=== PATIENT | female | born 1995 | race Caucasian/White ===

== ENCOUNTER 2018-09-21 09:21 | Emergency (ER) | payer OTHER ==
[2018-09-21 09:28] VITALS: BMI 35.8
--- NOTE | 2018-09-21 09:36 | PDOC ---
History of Present Illness - General Chief Complaint: Nausea/Vomiting Stated Complaint: DIZZYNESS, VOMITING, CONJESTED Time Seen by Provider: 09/21/18 09:30 History Source: Patient - History of Present Illness Timing/Duration: other (this am) Past History - Past Medical History Allergies/Adverse Reactions: Allergies Allergy/AdvReac Type Severity Reaction Status Date / Time No Known Allergies Allergy Verified 09/21/16 11:15 Home Medications: Ambulatory Orders Meclizine HCl [Antivert -] 25 mg PO TID #21 tablet 09/21/18 Ondansetron HCl [Zofran] 4 mg PO Q8H #12 tablet 09/21/18 COPD: No Disorders: Yes (ovarian cyst) - Reproductive History Cervical CA: No Dysfunctional Uterine Bleeding: No Ectopic : No Endometrial CA: No Polycystic Ovaries: No Therapeutic (s) & number: No Tubal Ligation: No - Immunization History Immunization Up to Date: Yes - Suicide/Smoking/Psychosocial Hx Smoking History: Never smoked Have you smoked in the past 12 months: No Information on smoking cessation initiated: No Hx Alcohol Use: No Drug/Substance Use Hx: No Substance Use Type: None Review of Systems - Review of Systems Constitutional: Yes: Weakness. No: Chills, Fever Respiratory: Yes: Cough. No: Shortness of Breath Cardiac (ROS): Yes: Chest Pain ABD/GI: Yes: Nausea, Vomiting. No: Diarrhea, Abdominal cramping : No: Dysuria Neurological: Yes: Headache, Dizziness. No: Numbness, Tingling, Weakness *Physical Exam - Vital Signs Last Vital Signs Temp Pulse Resp BP Pulse Ox 98.5 F 85 18 133/69 99 09/21/18 09:26 09/21/18 09:26 09/21/18 09:26 09/21/18 09:26 09/21/18 09:26 - Physical Exam General Appearance: Yes: Appropriately Dressed, Moderate Distress HEENT: positive: Normal ENT Inspection, Normal Voice, TMs Normal, Pharynx Normal. negative: Scleral Icterus (R), Scleral Icterus (L) Neck: positive: Supple Respiratory/Chest: positive: Lungs Clear, Normal Breath Sounds. negative: Respiratory Distress Cardiovascular: positive: Regular Rate, S1, S2 Gastrointestinal/Abdominal: positive: Soft. negative: Tender Musculoskeletal: negative: CVA Tenderness Integumentary: positive: Dry, Warm Neurologic: positive: Fully Oriented, Alert, Normal Mood/Affect, Motor Strength 5/5 Heart Score/ECG Review - ECG Intrepretation Comment:: 09/21/18 10:21 Twelve-lead EKG was performed and reviewed by me. There is normal sinus rhythm with a normal rate. The axis is normal. The intervals are normal. There are no ST or T wave abnormalities. Impression: Normal twelve-lead EKG ED Treatment Course - LABORATORY CBC & Chemistry Diagram: 09/21/18 09:37 09/21/18 09:37 Medical Decision Making - Medical Decision Making 09/21/18 09:35 23 yo F, no pmhx, in [facility] until this a.m. when patient awoke with vertigo, worse when she looks up, associated with nausea, vomiting, vague headache and generalized weakness. At some point had some chest pain which has since improved. Had URI recently that has mostly resolved but still has mild cough per pt. No SOB, hemoptysis, focal weakness, body aches, neck pain, photophobia, rash, diarrhea, f/c. Currently on menses and c/o her usual lower abd cramping. No recent travel or sick contacts See exam ?vestibular neuritis S/p recent URI Melissa uncomfortable but stable w/ unremarkable exam -IVF -meclizine -zofran -labs r/o other source, i/e flu, , etc -reassess 09/21/18 10:19 09/21/18 11:04 EKG and labs unremarkable. UA w/ 1+ LE w/ 10 wbc and 80 rico. Upreg neg. As pt reports no dysuria, will hold off on abx and send ucx. Patient reports feeling significantly better with fluids and meds and able to tolerate po in ED. Will discharge with supportive treatment. Reasons to return discussed with patient 09/21/18 11:08 *DC/Admit/Observation/Transfer Diagnosis at time of Disposition: Vertigo - Discharge Dispostion Disposition: HOME Condition at time of disposition: Improved - Prescriptions Prescriptions: Meclizine HCl [Antivert -] 25 mg PO TID #21 tablet Ondansetron HCl [Zofran] 4 mg PO Q8H #12 tablet - Referrals Referrals: Tova Longoria MD [Primary Care Provider] - - Patient Instructions Printed Discharge Instructions: DI for Labyrinthitis Additional Instructions: Your labs and EKG were normal here The cause of your symptoms is not exactly clear at this time, but might be viral related. Sometimes patients can get a sensation of the room spinning with nausea, vomiting, hearing loss and imbalance after a cold or other viral illness This condition is usually not dangerous There is usually no test to confirm this diagnosis. It is usually a clinical diagnosis. This condition is usually self-limited and resolves on its own. For in the meantime treatment includes rest, plenty of fluids medicine like meclizine to treat the dizziness, and anti-nausea medication until symptoms resolve. If your symptoms persist or last more than a few weeks him a you need to follow- up with your PMD for further evaluation or return to the ER - Post Discharge Activity Forms/Work/School Notes: Back to Work
[2018-09-21] MEDS ORDERED: SODIUM CHLORIDE 1,000 ML IV STA (09:41)
[2018-09-21] MEDS ORDERED: MECLIZINE HCL 25 MG TABLET (FP) PO ONE (09:41)
[2018-09-21] MEDS ORDERED: ONDANSETRON 4 MG/2 ML VIAL IVPUSH ONE (09:41)
[2018-09-21] MEDS ORDERED: ONDANSETRON 4 MG/2 ML VIAL ONE (09:54)
[2018-09-21] MEDS ORDERED: MECLIZINE HCL 25 MG TABLET (FP) ONE (09:54)
[2018-09-21 09:55] LABS: BASO % 0.6 % (0-2.0); EOS % 2.5 % (0-4.5); HEMATOCRIT 38.2 % (32.4-45.2); HEMOGLOBIN 12.9 GM/dL (10.7-15.3); LYMPH % 32.9 % (8-40); MCHC 33.7 g/dl (32.0-36.0); MEAN CELL VOLUME 86.2 fl (80-96); MEAN PLT VOLUME 7.4 fl (7.5-11.1); MONO % 7.3 % (3.8-10.2); NEUT % 56.7 % (42.8-82.8); PLATELET COUNT 343 K/MM3 (134-434); RBC 4.43 M/mm3 (3.60-5.2); RDW 12.9 % (11.6-15.6); WHITE BLOOD COUNT 6.7 K/mm3 (4.0-10.0)
[2018-09-21 09:58] LABS: HCG,QUALITATIVE URINE Negative
[2018-09-21 10:06] LABS: EPI CELLS 15.2 /HPF (0-5/HPF); URINE APPEARANCE CLOUDY; URINE BACTERIA 80.3 /hpf (NEGATIVE); URINE BILIRUBIN 1+ (NEGATIVE); URINE CASTS 14 /hpf (0-8); URINE COLOR RED; URINE GLUCOSE (UA) NEGATIVE (NEGATIVE); URINE KETONE NEGATIVE (NEGATIVE); URINE LEUK ESTERASE 1+ (NEGATIVE); URINE NITRITE NEGATIVE (NEGATIVE); URINE PROTEIN 2+ (NEGATIVE); URINE UROBILINOGEN 0.2 mg/dL (0.2-1.0); URINE WBC 10 /hpf (0-5)
[2018-09-21 10:11] LABS: COCAINE, UR NEGATIVE ng/ml (CUTOFF=300); METHADONE, UR NEGATIVE ng/ml (CUTOFF=300); OPIATES, URI NEGATIVE ng/ml (CUTOFF=300); PHENCYCLIDINE,URINE NEGATIVE ng/ml (CUTOFF=25); URINE AMPHETAMINES NEGATIVE ng/ml (CUTOFF=500); URINE BARBITURATES NEGATIVE ng/ml (CUTOFF=200); URINE BENZODIAZEPINES NEGATIVE ng/ml (CUTOFF=200)
[2018-09-21 10:25] LABS: ALBUMIN 3.8 g/dl (3.4-5.0); ALK PHOS 69 U/L (45-117); ANION GAP 8 MMOL/L (8-16); BILIRUBIN,TOTAL 0.4 mg/dL (0.2-1); BLOOD UREA NITROGEN 12 mg/dL (7-18); CALCIUM 9.1 mg/dL (8.5-10.1); CHLORIDE 107 mmol/L (98-107); CO2 23 mmol/L (21-32); CREATININE 0.8 mg/dL (0.55-1.3); GLUCOSE,RANDOM 103 mg/dL (74-106); POTASSIUM 4.2 mmol/L (3.5-5.1); SGOT/AST 29 U/L (15-37); SGPT/ALT 38 U/L (13-61); SODIUM 138 mmol/L (136-145); TOT PROT 7.6 g/dl (6.4-8.2)
[2018-09-21 10:34] LABS: URINE RBC 100.8 /hpf (0-4)
[2018-09-21 10:35] LABS: YEAST NONE SEEN (NEGATIVE)
[2018-09-21 12:02] VITALS: BP 118/78; PULSE 78; TEMP 98.6
--- NOTE | 2018-09-21 16:35 | EKG ---
Test Reason : Blood Pressure : / mmHG Vent. Rate : 074 BPM Atrial Rate : 074 BPM P-R Int : 142 ms QRS Dur : 084 ms QT Int : 392 ms P-R-T Axes : 059 033 019 degrees QTc Int : 435 ms NORMAL SINUS RHYTHM WITH SINUS ARRHYTHMIA NORMAL ECG NO PREVIOUS ECGS AVAILABLE Confirmed by ELLIE CASTAÑEDA MD ([id number]) on 09/21/2018 4:35:19 PM Referred By: Confirmed By:ELLIE CASTAÑEDA MD
== END 2018-09-21 12:01 | disposition home or self-care (01) ==
LOC: JER 09:21
PROC: 3E0337Z Introduction of Electrolytic and Water Balance Substance into Peripheral Vein, Percutaneous Approach (ICD-10-PCS; principal; 2018-09-21)
DX: R42 Dizziness and giddiness (principal)
CPT/HCPCS: 36415; 80053; 80307; 81003; 84703; 85025; 87086; 87804; 93005; 93010; 99284-25; J7030

== ENCOUNTER 2022-11-30 11:07 | Emergency (ER) | payer OTHER ==
[2022-11-30 11:17] VITALS: BP 106/52; PULSE 92; RESP 18; TEMP 97.8; BMI 32.5
[2022-11-30] MEDS ORDERED: ONDANSETRON 4 MG/2 ML VIAL IVPUSH ONE (11:21)
[2022-11-30] MEDS ORDERED: ONDANSETRON 4 MG/2 ML VIAL ONE (11:46)
[2022-11-30 12:11] LABS: ALBUMIN 4.1 g/dl (3.4-5.0); BILIRUBIN,TOTAL 0.3 mg/dl (0.2-1); BLOOD UREA NITROGEN 11.9 mg/dl (7-18); CALCIUM 9.2 mg/dl (8.5-10.1); CREATININE 0.7 mg/dl (0.6-1.3); HEMATOCRIT 38.6 % (32.4-45.2); MCHC 33.7 g/dl (32.0-36.0); MEAN CELL VOLUME 89.1 fl (80-96); MEAN PLT VOLUME 7.6 fl (7.5-11.1); PLATELET COUNT 309.3 10^3/uL (134-434); POTASSIUM 4.2 mmol/L (3.5-5.1); RBC 4.33 10^6/uL (3.60-5.2); RDW 13.7 % (11.6-15.6); SGOT/AST 16.2 U/L (15-37); SGPT/ALT 10.1 U/L (7-52); TOT PROT 6.6 g/dl (6.4-8.2); WHITE BLOOD COUNT 5.4 10^3/uL (4.0-10.8)
[2022-11-30 12:18] LABS: HCG,QUALITATIVE URINE NEGATIVE
[2022-11-30 13:14] LABS: PLATELET ESTIMATE ADEQUATE
== END 2022-11-30 14:25 | disposition home or self-care (01) ==
LOC: FER 11:07
PROC: 3E033NZ Introduction of Analgesics, Hypnotics, Sedatives into Peripheral Vein, Percutaneous Approach (ICD-10-PCS; principal; 2022-11-30)
DX: R10.2 Pelvic and perineal pain (principal); R11.0 Nausea
CPT/HCPCS: 36415; 76830-TC; 80053; 81003; 84703; 85027; 86850; 86900; 86901; 99284-25

== ENCOUNTER 2023-05-31 20:45 | Emergency (ER) | payer OTHER ==
[2023-05-31 20:57] VITALS: BP 125/67; PULSE 73; RESP 16; TEMP 98.2; BMI 32.9
[2023-05-31] MEDS ORDERED: ACETAMINOPHEN 500 MG TABLET (FP) PO ONE (22:15)
[2023-05-31] MEDS ORDERED: ACETAMINOPHEN 500 MG TABLET (FP) ONE (22:27)
== END 2023-05-31 22:29 | disposition home or self-care (01) ==
LOC: FER 20:45
DX: H53.9 Unspecified visual disturbance (principal)
CPT/HCPCS: 70450-TC; 81025; 99284-25

== ENCOUNTER 2023-07-04 10:15 | Emergency (ER) | payer OTHER ==
[2023-07-04 10:35] VITALS: BP 120/70; PULSE 86; RESP 15; TEMP 98.3; BMI 33.8
[2023-07-04 11:03] LABS: HCG,QUALITATIVE URINE Negative
[2023-07-04] MEDS ORDERED: ACETAMINOPHEN 325 MG TABLET (FP) PO ONE (11:31)
[2023-07-04] MEDS ORDERED: ACETAMINOPHEN 500 MG TABLET (FP) ONE (11:52)
[2023-07-04 11:56] LABS: HEMATOCRIT 39.8 % (32.4-45.2); HEMOGLOBIN 13.3 G/dL (10.7-15.3); MCH 29.6 pg (25.7-33.7); MCHC 33.3 g/dl (32.0-36.0); MEAN PLT VOLUME 7.2 fl (7.5-11.1); PLATELET COUNT 308.3 10^3/uL (134-434); RBC 4.47 10^6/uL (3.60-5.2); RDW 13.9 % (11.6-15.6); WHITE BLOOD COUNT 12.5 10^3/uL (4.0-10.8)
[2023-07-04 12:17] LABS: ALBUMIN 4.5 g/dl (3.4-5.0); BILIRUBIN,TOTAL 0.4 mg/dl (0.2-1); CALCIUM 9.7 mg/dl (8.5-10.1); CREATININE 0.6 mg/dl (0.6-1.3); POTASSIUM 4.1 mmol/L (3.5-5.1); TOT PROT 7.5 g/dl (6.4-8.2)
[2023-07-04 12:18] LABS: PLATELET ESTIMATE ADEQUATE
== END 2023-07-04 15:02 | disposition home or self-care (01) ==
LOC: FER 10:15 → SUPCPDRO 10:15 → FER 15:02
DX: R10.9 Unspecified abdominal pain (principal); R35.0 Frequency of micturition; R30.0 Dysuria
CPT/HCPCS: 36415; 74176-TC; 76830-TC; 80053; 81003; 81015; 84703; 85027; 87086; 87186; 99284-25